=== PATIENT | male | born 1970 | race Caucasian/White ===

== ENCOUNTER 2016-10-29 06:24 | Day surgery (SDC) | payer OTHER ==
[2016-10-12 15:21] VITALS: BMI 24.4
[~2016-10-29 06:24] MED LIST: LACTATED RINGERS SOLUTION 1,000 ML IV SCH; ONDANSETRON 4 MG/2 ML VIAL IVPUSH PRN; PROMETHAZINE HCL 25 MG/1 ML VIAL IVPUSH PRN; oxyCODONE HCL 5 MG TABLET PO PRN
[2016-10-29] MEDS ORDERED: LIDOCAINE HCL 1%, 10 MG/ML (20ML VIAL) ONE (07:18)
[2016-10-29] MEDS ORDERED: MIDAZOLAM HCL 2 MG/2 ML SINGLE DOSE VIAL ONE (07:38)
[2016-10-29] MEDS ORDERED: CLINDAMYCIN PHOSPHATE 600 MG/4 ML VIAL ONE (07:46)
[2016-10-29] MEDS ORDERED: ONDANSETRON 4 MG/2 ML VIAL ONE (07:53)
[2016-10-29 08:36] VITALS: PULSE 81; TEMP 97.8
[2016-10-29 09:08] VITALS: BP 117/83
--- NOTE | 2016-10-29 10:39 | OP ---
DATE OF OPERATION: 10/29/2016 PREOPERATIVE DIAGNOSIS: Soft tissue mass, left leg, suspect lipoma. POSTOPERATIVE DIAGNOSIS: Soft tissue mass, left leg, suspect lipoma. PROCEDURE: Excision of left leg intramuscular lipoma with 6-cm intermediate wound closure. SURGEON: Yoshi Ferguson MD CLINICAL BUSINESS MANAGER: None. ANESTHESIA: Nitin Love MD (MAC/1% lidocaine without epinephrine, approximately 10 mL). ESTIMATED BLOOD LOSS: Minimal. SPECIMEN: Lipoma. DESCRIPTION OF PROCEDURE: This is a 46-year-old gentleman who has a soft tissue mass of the left lateral leg. Patient wishes to have this removed. Patient was identified and appropriately positioned on the operating room table. After adequate IV sedation, the area was prepped and draped in the usual sterile fashion with ChloraPrep. Lidocaine 1% without epinephrine was used for anesthesia, approximately 10 mL. A 6-cm incision overlying the mass was made deep in the subcutaneous tissue. The mass was sharply excised. A portion of the mass emanated from the muscle of the left lateral leg. This lipoma was teased out of the musculature. This was done intact. The loose attenuated fascia overlying the musculature was then reapproximated with 2-0 interrupted Vicryl suture. The subcutaneous tissues irrigated. The operative field examined and noted to be hemostatic. The dermis was reapproximated with interrupted inverted 3-0 chromic sutures, and the skin closed with a 4-inch subcuticular Biosyn followed by Dermabond. At the conclusion of this case, sponge and instrument counts were correct. ATTESTATION: Brief operative note handwritten on the preprinted form. Josie BOND [id number] cc: Denise Shore MD [facility]
--- NOTE | 2016-11-02 13:19 | PATH ---
Surgical Pathology Report Patient Name: ARCHIE CROSS Med. Rec. #: [id number] /Age/Gender: 1970 (Age: 46) / M Account: [id number] Location: [facility] AMBULATORY Taken: 10/29/2016 Received: 10/29/2016 Reported: 11/02/2016 Physicians: Yoshi Ferguson Specimen(s) Received SOFT TISSUE MASS LEFT LEG, LIPOMA Clinical History Soft tissue mass left leg Final Diagnosis SOFT TISSUE, LEFT LEG, EXCISION: LIPOMA. Electronically Signed Ba Robertson M.D. Gross Description Received in formalin, labeled "soft tissue mass left leg, lipoma," is a 4.3 x 3.5 x 2.8 cm law-yellow, irregular, unoriented portion of yellow lobulated adipose tissue. Sectioning reveals homogeneous yellow, smooth fat. No areas of hemorrhage or necrosis are identified. Regulatory Process Manager sections are submitted in 2 cassettes. /11/01/2016 saudi11/01/2016
== END 2016-10-29 09:05 | disposition home or self-care (01) ==
LOC: FASU 06:24
PROVIDERS: ATTEND Surgery
PROC: 0KBT0ZZ Excision of Left Lower Leg Muscle, Open Approach (ICD-10-PCS; principal; 2016-10-29 07:58)
DX: D17.9 Benign lipomatous neoplasm, unspecified (principal)
CPT/HCPCS: 88304-TC